=== PATIENT | female | born 1960 | race Caucasian/White ===

== ENCOUNTER 2018-02-08 06:25 | Day surgery (SDC) | payer OTHER ==
[2018-02-03 10:30] VITALS: BMI 24.7
[2018-02-08] MEDS ORDERED: ceFAZolin SODIUM 1 GM VIAL ONE ×2 (11:29→11:46)
[2018-02-08] MEDS ORDERED: GENTAMICIN SO4 80 MG/2 ML VIAL ONE (11:29)
[2018-02-08] MEDS ORDERED: SODIUM CHLORIDE 0.9% P/F 10 ML VIAL IJ ONE (11:46)
[2018-02-08] MEDS ORDERED: DEXAMETHASONE SOD PHOSPHATE 4 MG/1 ML VIAL ONE (11:46)
[2018-02-08] MEDS ORDERED: ONDANSETRON 4 MG/2 ML VIAL ONE ×2 (11:46→16:36)
[2018-02-08] MEDS ORDERED: LIDOCAINE HCL/PF 2% SDV 5ML VIAL ONE (11:46)
[2018-02-08] MEDS ORDERED: PROPOFOL 20 ML ONE ×2 (11:47→15:05)
[2018-02-08] MEDS ORDERED: DESFLURANE GAS 240 ML BOTTLE IH ONE (11:56)
[2018-02-08] MEDS ORDERED: MIDAZOLAM HCL 2 MG/2 ML SINGLE DOSE VIAL ONE (12:20)
[2018-02-08] MEDS ORDERED: DEXMEDETOMIDINE HCL 200 MCG/2 ML ML IVPB ONE (12:28)
[2018-02-08] MEDS ORDERED: ROCURONIUM BROMIDE 50 MG/5 ML VIAL ONE (12:30)
[2018-02-08] MEDS ORDERED: ePHEDrine SULFATE 50 MG/1 ML AMPULE ONE (13:12)
[2018-02-08] MEDS ORDERED: GLYCOPYRROLATE 0.2 MG/1 ML VIAL ONE (16:13)
[2018-02-08] MEDS ORDERED: NEOSTIGMINE METHYLSULFATE 0.5 MG/ML - 10 ML MDV ONE (16:13)
[2018-02-08] MEDS ORDERED: oxyCODONE HCL 5 MG TABLET PO PRN ×4 (16:21→16:40)
[2018-02-08] MEDS ORDERED: PROMETHAZINE HCL 25 MG/1 ML VIAL IVPB PRN (16:21)
[2018-02-08] MEDS ORDERED: ONDANSETRON 4 MG/2 ML VIAL IVPUSH PRN (16:21)
[2018-02-08] MEDS ORDERED: ONDANSETRON 4 MG/2 ML VIAL IVPB PRN (16:40)
[2018-02-08] MEDS ORDERED: LACTATED RINGERS SOLUTION 1,000 ML IV SCH (16:45)
[2018-02-08] MEDS ORDERED: oxyCODONE HCL 5 MG TABLET ONE (18:00)
[2018-02-08 19:14] VITALS: BP 130/70; PULSE 91; TEMP 98.3
--- NOTE | 2018-02-08 22:55 | OP ---
DATE OF OPERATION: 02/08/2018 PROCEDURE: Left-sided breast prosthetic capsulotomy with removal of unknown foreign body, removal of intact breast prosthesis, placement of new silicone gel breast prosthesis. Right side periprosthetic capsulectomy with removal of ruptured right-sided breast prosthesis, removal of unknown foreign body in right breast capsule, replacement with new silicone gel breast prosthesis to right breast and right breast mastopexy. 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 POSTOPERATIVE DIAGNOSIS: Left-sided breast cancer, status post breast cancer surgery with implant reconstruction, capsular contracture on the left side with implant distortion, asymmetry of breasts, right-sided asymmetry of breast to reconstructed breast, right-sided magnetic resonance imaging-confirmed breast implant rupture, right-sided capsular contracture. Additional layer of foreign body to both breasts within the capsule, which is separate from the implants and this was removed. ATTENDING SURGEON: Adair Byers MD DESCRIPTION OF PROCEDURE: The patient is seen in the holding area. She is marked for all incisions. The nipple was sighted to be equal to the contralateral side, which is 22 cm from the sternal notch bilaterally. On the right a circum-vertical mastopexy is planned. The patient is then brought to the operating room. Sequential compression stockings were applied. NANCI hose were applied. She is given anesthesia. All extremities are secured and properly padded. She is prepped and draped in the standard surgical fashion. One gram of Ancef was given preoperatively. Timeout was called. Patient, procedure, site, and sides are verified. Attention was first directed towards the left side where an inframammary incision is made. Dissection is then carried down to the level of the periprosthetic capsule. A capsulotomy was performed. The intact mammary implant is removed. Capsulotomy was then performed along the inferior pole to allow for better inferior pole fill. Hemostasis was achieved. The wound was irrigated with triple antibiotic solution and a 330 mL sizer is placed within the cavity and the skin tailor tacked. It was noted that the removed implant is a PIP polyurethane textured round silicone gel implant with a base diameter of 11.5 cm and a fill of 335 mL. It appears to be high profile. Attention was then directed towards the right side. On the right side the mastopexy incisions are marked. Within these incisions, a vertical incision was made in the 6 o'clock location, through which the dissection is carried down to the level of the periprosthetic capsule. A capsulotomy was then performed. It was immediately recognized that the implant is ruptured. The implant material is removed piecemeal. The silicone gel is relatively cohesive and there is not much free liquid phase gel within the cavity. The appearance of the implant, while it is the same size and style implant as the other side, is degraded and discolored. There is granulation tissue with inflammatory changes within the capsule. A decision is made for a subtotal capsulectomy leaving elements of the posterior capsule that were not deemed safe for routine removal. The capsule is sent for pathology. It should be noted that on both sides, both the left side and the right side, there was a separate lining, which I could not identify within the capsule. This served as a bag within which the implant is placed. I am not sure if this is a separate unknown reaction to polyurethane or if this is a foreign body; however, it is removed as a separate entity and sent for pathology. On the right side, a capsular revision is also performed where the right lateral extent of the pocket for the implant is closed with a series of [id number] 0 PDS suture laterally and medially capsulotomy was performed to allow for more preferential medial pole fill. At this point, the thickness of the two breasts are assessed and given the previous cancer surgery and radiation on the left side, there appears to be better thickness and volume on the right, so a discrepancy in the size of the new implants to be placed is determined. Using a no-touch technique with standard triple antibiotic rinse on the left side, an Allergan style SSF-335 mL high-profile silicone implant is placed with a Diehl funnel and the skin tailor tacked. The sizer was placed on the right side and the nipple areolar position is checked. Volume is checked and the decision was then made for a 10 mL smaller implant on the right side. Prior to placing this implant on the right side, 3 L of pulse lavage saline are used to wash out the cavity. Hemostasis was meticulously achieved on the right side. A Natural Allergan style SSF-325 implant is placed and oriented properly. With the patient brought to a seated position, the nipple position is reassured and all skin is tailor tacked. With good symmetry, the incisions for the mastopexy are marked once again and a superior pedicle is planned. A superior pedicle was de-epithelialized with the exception of the nipple areolar complex, which had been traced with a 45-mm cookie cutter. A circum-vertical technique is used, excising any excess skin on the vertical pole. The deep tissue over the breast implant is closed with a running locking 3-0 Vicryl suture. The vertical limbs are closed with series of interrupted buried deep dermal 3-0 Monocryl suture followed by running subcuticular 3-0 Monocryl suture. The nipple areola, which is inset into its circular pattern is inset with a series of interrupted buried deep dermal 3-0 Monocryl suture followed by a running subcuticular 4-0 Monocryl suture. Attention was then directed towards closure over the left side, which is done with a capsular closure with a running locking 3-0 Vicryl suture followed by a series of interrupted buried deep dermal 3-0 Monocryl suture followed by a running subcuticular 3-0 Monocryl suture. All tissues were pink and viable. The Steri-Strips were applied. A surgical bra was applied. Patient awoken from anesthesia, having tolerated the procedure well, and transferred to recovery without complication. Bolivar [id number]
[2018-02-09] MEDS ORDERED: LEVOTHYROXINE NA 75 MCG TABLET (FP) PO SCH (07:00)
--- NOTE | 2018-02-16 15:57 | PATH ---
Surgical Pathology Report Patient Name: EUGENIE HAZEL [facility]. Rec. #: [id number] /Age/Gender: 1960 (Age: 58) / F Account: [id number] Location: REPLACED BY [facility] Taken: 02/08/2018 Received: 02/08/2018 Reported: 02/16/2018 Physicians: Adair Byers Specimen(s) Received A: LEFT BREAST CAPSULE B: RIGHT BREAST CAPSULE C: RIGHT BREAST ADDITIONAL CAPSULE D: RIGHT BREAST SKIN E: RIGHT BREAST IMPLANT F: LEFT BREAST IMPLANT Clinical History Ruptured implant right side, bilateral breast capsular contracture Final Diagnosis A. CAPSULE, LEFT BREAST, CAPSULECTOMY: FIBROUS CAPSULE. B. CAPSULE, RIGHT BREAST, CAPSULECTOMY: FIBROUS CAPSULE SHOWING PROMINENT HISTIOCYTIC REACTION. C.. ADDITIONAL CAPSULE, RIGHT BREAST, CAPSULECTOMY: FIBROUS CAPSULE SHOWING CHRONIC INFLAMMATION AND PROMINENT HISTIOCYTIC REACTION. D. SKIN, RIGHT BREAST, EXCISION: SKIN WITH NO PATHOLOGIC FINDINGS. E. IMPLANT, RIGHT BREAST, REMOVAL: IMPLANT, DESCRIBED (GROSS EXAMINATION ONLY). F. IMPLANT, LEFT BREAST, REMOVAL: IMPLANT, DESCRIBED (GROSS EXAMINATION ONLY). Electronically Signed Jennifer Owens M.D. Gross Description A. Received in formalin labeled "left breast capsule," is a 13.0 x 9.5 x 0.2 cm verduzco portion of firm fibrous tissue, consistent with breast capsule. No discrete masses are identified. Produce Department Supervisor sections are submitted in one cassette. B. Received in formalin labeled "right breast capsule," is a 12.5 x 10.5 x 0.2 cm verduzco portion of firm fibrous tissue, consistent with a breast capsule. No discrete masses are identified. Produce Department Supervisor sections are submitted in one cassette. C. Received in formalin labeled "right breast additional," is a 5.4 x 4.8 x 0.5 cm aggregate of multiple verduzco, irregular, unoriented portions of firm fibrous tissue with attached fat, consistent with portions of breast capsule. No discrete masses are identified. Produce Department Supervisor sections are submitted in one cassette. D. Received in formalin labeled "right breast skin," is a 4.8 x 3.2 x 0.4 cm aggregate of verduzco, irregular, unoriented portions of skin with underlying soft tissue. No discrete lesions are identified. Produce Department Supervisor sections are submitted in one cassette. E. Received fresh labeled "right breast implant," is a 10.0 x 10.0 x 3.5 cm aggregate of multiple portions of a disrupted breast implant and silicon contents. The silicone content is leaking into the container. No soft tissue is present. No sections are submitted, gross only. F. Received fresh labeled "left breast implant," is an 11.5 cm in diameter x 4 cm in depth clear, rubbery, intact breast implant. No soft tissue is present. No sections are submitted, gross only. 02/10/2018 [facility]02/10/2018
== END 2018-02-08 19:14 | disposition home or self-care (01) ==
LOC: FASU 06:25
PROVIDERS: ATTEND Plastic Surgery
PROC: 0HQT0ZZ Repair Right Breast, Open Approach (ICD-10-PCS; 2018-02-08)
PROC: 0JC60ZZ Extirpation of Matter from Chest Subcutaneous Tissue and Fascia, Open Approach (ICD-10-PCS; 2018-02-08)
PROC: 0HNU0ZZ Release Left Breast, Open Approach (ICD-10-PCS; principal; 2018-02-08 12:30)
PROC: 0HPT0JZ Removal of Synthetic Substitute from Right Breast, Open Approach (ICD-10-PCS; 2018-02-08 12:30)
PROC: 0HRT0JZ Replacement of Right Breast with Synthetic Substitute, Open Approach (ICD-10-PCS; 2018-02-08 12:30)
DX: T85.44XA Capsular contracture of breast implant, initial encounter (principal); T85.49XA Other mechanical complication of breast prosthesis and implant, initial encounter; Z85.3 Personal history of malignant neoplasm of breast; Z42.1 Encounter for breast reconstruction following mastectomy; Z90.13 Acquired absence of bilateral breasts and nipples; Y82.8 Other medical devices associated with adverse incidents; Y92.9 Unspecified place or not applicable; N65.1 Disproportion of reconstructed breast
CPT/HCPCS: 88300-TC; 88304-TC; 94760